=== PATIENT | female | born 1955 | race African-American/Black ===

== ENCOUNTER 2018-07-04 15:41 | Emergency (ER) | payer OTHER ==
[~2018-07-04] VITALS: Ht 165.1 cm; Wt 52.0 kg
[2018-07-04 15:48] VITALS: BP 172/81
== END 2018-07-04 16:41 | disposition left against medical advice (07) ==
LOC: ER 16:40
DX: R53.1 Weakness (principal); Z53.21 Procedure and treatment not carried out due to patient leaving prior to being seen by health care provider